=== PATIENT | male | born 1995 | race Caucasian/White ===

== ENCOUNTER 2018-12-03 04:08 | Emergency (ER) | payer SELFPAY ==
[~2018-12-03] VITALS: Ht 190.5 cm; Wt 95.3 kg
--- NOTE | 2018-12-03 04:32 | NUR ---
BIBA W/ [employer] REPORTING OD ON EDIBLE AND BIZARRE BEHAVIOR. PT A, OX2 , NAD NOTED. RESP EVEN AND UNLABORED. L FOREHEAD ABRASION NOTED. +ORAL TRAUMA, L HAND ABRASION. PLACED ON A MONITOR VSS. WILL CONT TO MONITOR,
[2018-12-03 04:38] LABS: BASOPHILS % (AUTO) 0.1 % (0.0-2.0); EOSINOPHILS % (AUTO) 0.3 % (0.0-6.0); HEMATOCRIT 45 % (39-51); HEMOGLOBIN 15.3 g/dL (13.5-17.5); LYMPHOCYTES % (AUTO) 5.9 % (20.0-44.0); MEAN CORPUSCULAR HGB CONC 34 g/dl (31.0-36.0); MEAN CORPUSCULAR VOLUME 83 fL (80-96); MONOCYTES % (AUTO) 6.4 % (2.0-12.0); NEUTROPHILS # (AUTO) 14.3 /CMM (1.8-8.9); NEUTROPHILS % (AUTO) 87.3 % (43.0-81.0); PLATELET COUNT (AUTO) 277 /CMM (150-450); RED BLOOD CELL COUNT(AUTO) 5.45 MIL/uL (4.5-6.0); WHITE BLOOD COUNT (AUTO) 16.4 K/uL (4.3-11.0)
[2018-12-03 04:45] LABS: CARBON DIOXIDE 25 mmol/L (21-32); CHLORIDE 102 mmol/L (98-107); CREATININE 1.5 mg/dL (0.6-1.3); GLUCOSE 194 mg/dL (74-106); POTASSIUM 3.2 mmol/L (3.5-5.1); SODIUM SERUM 139 mmol/L (136-145); UREA NITROGEN, BLOOD 15 mg/dL (7-18)
--- NOTE | 2018-12-03 04:51 | NUR ---
URINE COLLECTED AND SENT THE LAB
[2018-12-03 04:52] LABS: ALANINE AMINOTRANSFERASE 26 U/L (12-78); ALBUMIN 4.1 g/dL (3.4-5.0); ALCOHOL, BLOOD < 3 mg/dL (0-0); ALKALINE PHOSPHATASE 114 U/L (46-116); ASPARTATE AMINOTRANSFERASE 15 U/L (15-37); BILIRUBIN,DIRECT 0.1 mg/dL (0.0-0.2); BILIRUBIN,TOTAL 0.2 mg/dL (0.2-1.0); TOTAL PROTEIN, SERUM 7.9 g/dL (6.4-8.2)
--- NOTE | 2018-12-03 04:53 | NUR ---
PT WAS PICKED UP FOR CT
[2018-12-03 04:55] LABS: ACETAMINOPHEN 0 ug/ml (10-30); SALICYLATE 1.1 mg/dL (2.8-20.0)
[2018-12-03 05:03] LABS: APPEARANCE,URINE SL CLOUDY (CLEAR); BILIRUBIN,URINE NEGATIVE (NEGATIVE); BLOOD, URINE 2+ Ery/uL (NEGATIVE); COLOR,URINE YELLOW (YELLOW); KETONES,URINE NEGATIVE (NEGATIVE); LEUKOCYTE ESTERASE ,URINE NEGATIVE (NEGATIVE); NITRITE, URINE NEGATIVE (NEGATIVE); PH,URINE 5.5 (5.0-8.0); PROTEIN,URINE NEGATIVE (NEGATIVE); UGLUCOSE NEGATIVE (NEGATIVE); UROBILINOGEN,URINE 0.2 EU/dL (0.2)
[2018-12-03 05:08] LABS: BACTERIA,URINE Few /HPF (None Seen); RBC,URINE 21-50 /HPF (0-2); SQUAMOUS EPITHELIAL CELL,UR Rare /HPF (None Seen)
[2018-12-03] MEDS ORDERED: IV NS 0.9% 1,000 ML BAG IV ONE (05:30)
[2018-12-03] MEDS ORDERED: TDAP [DIPH/PERTUSSIS/TET] 0.5 ML VIAL IM ONE ×2 (06:00→06:05)
--- NOTE | 2018-12-03 06:22 | NUR ---
20G IV LINE STARTED ON L HAND AND IVF ADMINISTERED. PT AWAKE AND RESPONSIVE. HOWEVER HE DOES NOT QUIET REMEMBER ALL PAST EVENTS. FRIEND AT THE BED SIDE. NO DISTRESS NOTED. WILL CONT TO MONITOR,
--- NOTE | 2018-12-03 07:20 | NUR ---
REPORT RECEIVED FROM JADIEL PLEITEZ FOR JOANN, PATIENT IN BED, AWAKE, AOx3, HOOKED TO MONITOR, FRIEND AT BEDSIDE, WILL CONTINUE TO MONITOR
--- NOTE | 2018-12-03 07:48 | NUR ---
PATIENT WAS ABLE TO AMBULATE W STEADY GAIT, SEEN BY DR MICHELE.
--- NOTE | 2018-12-03 07:58 | NUR ---
IV removed. Catheter intact and site benign. Pressure and 4x4 applied to site. No bleeding noted.Patient discharged to home in stable condition. Written and verbal after care instructions given. Patient verbalizes understanding of instruction.
[2018-12-03 07:59] VITALS: BP 141/73
== END 2018-12-03 07:59 | disposition home or self-care (01) ==
LOC: ER 04:13
DX: F12.10 Cannabis abuse, uncomplicated (principal); E87.6 Hypokalemia; R73.9 Hyperglycemia, unspecified; D72.829 Elevated white blood cell count, unspecified; R31.9 Hematuria, unspecified; N28.9 Disorder of kidney and ureter, unspecified; S00.81XA Abrasion of other part of head, initial encounter; R40.4 Transient alteration of awareness; X58.XXXA Exposure to other specified factors, initial encounter; Y93.89 Activity, other specified; Y92.89 Other specified places as the place of occurrence of the external cause; Y99.8 Other external cause status
CPT/HCPCS: 36415; 70450; 71045; 80048; 80076; 80305; 80307; 80329; 81001; 85025; 90471; 90715; 93005; 99284; G0480; J7030; 81000-TC